=== PATIENT | male | born 1945 | race Caucasian/White ===

== ENCOUNTER → 2023-11-09 13:52 | Outpatient (REF) | payer MEDICARE, OTHER, SELFPAY | LOC: RAD 13:52 | PROVIDERS: ATTENDING PHYSICIAN Surgery; FAMILY PHYSICIAN Internal Medicine | DX: K21.9 Gastro-esophageal reflux disease without esophagitis (principal); M62.08 Separation of muscle (nontraumatic), other site | CPT/HCPCS: 74177; Q9967 ==

== ENCOUNTER → 2024-03-11 06:19 | Day surgery (SDC) | payer MEDICARE, OTHER, SELFPAY | LOC: GI 06:19 | PROVIDERS: ATTENDING PHYSICIAN Specialist | DX: K51.50 Left sided colitis without complications (principal); D12.3 Benign neoplasm of transverse colon; K57.30 Diverticulosis of large intestine without perforation or abscess without bleeding; K22.70 Barrett's esophagus without dysplasia; K29.50 Unspecified chronic gastritis without bleeding; K22.89 Other specified disease of esophagus; K26.9 Duodenal ulcer, unspecified as acute or chronic, without hemorrhage or perforation; R12 Heartburn | CPT/HCPCS: 45380; 43239; 88305; 88342 ==

== ENCOUNTER → 2024-12-02 08:24 | Outpatient (REF) | payer MEDICARE, OTHER, SELFPAY ==
[2024-12-02 09:46] LABS: % Basophils 0.7 % (0-2); % Eosinophils 5.2 % (0-6); % Immature Granulocytes 0.5 % (0-0.5); % Lymphocytes 24.2 % (20.5-51.1); % Monocytes 9.8 % (1.7-9.3); % Neutrophils 59.6 % (42.2-75.2); Absolute Eosinophils 0.3 10^3/uL (0-0.7); Absolute Lymphocytes 1.4 10^3/uL (1.2-3.4); Absolute Monocytes 0.6 10^3/uL (0.1-0.6); Absolute Neutrophils 3.4 10^3/uL (1.4-6.5); Hematocrit 36.3 % (39.0-52.0); Hemoglobin 12.6 g/dL (13.0-18.0); Mean Corp Hgb Conc. 34.7 g/dL (33.0-37.0); Mean Corpuscular Hgb 35.3 pg (27.0-31.0); Mean Corpuscular Volume 101.7 fL (80.0-94.0); Mean Platelet Volume 8.7 fL (7.4-10.4); Nucleated Red Blood Cells % 0 % (-); Platelet Count 271 10^3/uL (130-400); Red Blood Cell Count 3.57 10^6/uL (4.70-6.10); White Blood Cell Count 5.6 10^3/uL (4.8-10.8)
[2024-12-02 10:21] LABS: ALT (SGPT) 30 U/L (0-50); AST (SGOT) 33 U/L (17-59); Albumin 4.6 g/dl (3.5-5.0); Alkaline Phosphatase 107 U/L (38-126); Blood Urea Nitrogen 18 mg/dl (9-20); Carbon Dioxide 19 mmol/L (22-30); Chloride 113 mmol/L (98-107); Glucose 90 mg/dl (70-99); Potassium 4.4 mmol/L (3.5-5.1); Sodium 141 mmol/L (135-145); Total Bilirubin 0.4 mg/dl (0.2-1.3); eGFR > 60.00
[2024-12-02 10:30] LABS: Free T4 0.99 ng/dl (0.78-2.19)
[2024-12-02 10:44] LABS: TSH 4.33 uIU/ml (0.47-4.68)
== END ==
LOC: RCS 08:24
PROVIDERS: ATTENDING PHYSICIAN Hospitalist
DX: R53.83 Other fatigue (principal); E03.9 Hypothyroidism, unspecified
CPT/HCPCS: 36415; 80053; 84439; 84443; 85025; 93306

== ENCOUNTER → 2024-12-04 11:36 | Outpatient (REF) | payer MEDICARE, OTHER, SELFPAY ==
[2024-12-04 12:47] LABS: Iron 121 ug/dl (49-181)
[2024-12-04 12:57] LABS: Percent Saturation 52 % (20-50); Total Iron Binding Capacity 230 ug/dl (261-462)
[2024-12-04 13:35] LABS: Vitamin B12 719 pg/ml (239-931)
[2024-12-04 15:16] LABS: Reticulocyte Count 1.8 % (0.4-2.8)
[2024-12-06 19:00] LABS: Haptoglobin 177 mg/dL (30-200)
== END ==
LOC: REG 11:36
PROVIDERS: ATTENDING PHYSICIAN Hospitalist
DX: D64.9 Anemia, unspecified (principal); D51.0 Vitamin B12 deficiency anemia due to intrinsic factor deficiency
CPT/HCPCS: 36415; 82607; 82728; 83010; 83540; 83550; 85045

== ENCOUNTER 2025-04-06 22:28 | Emergency (ER) | payer MEDICARE, OTHER, SELFPAY ==
[2025-04-06 22:30] VITALS: BP 159/101
[2025-04-07] MEDS: ADACEL 0.5 ML IM (00:07)
--- NOTE | 2025-04-07 00:09 | ED.GENMED ---
History of Present Illness
General
Chief Complaint: Head Injury
Source: patient and family
Exam Limitations: none
Time Seen by Provider: 04/06/25 23:31
History of Present Illness
History of Present Illness:
79yoM with a history of hypertension and DVT on Eliquis presenting with his and daughter for evaluation after a fall this evening. Patient was getting ready for bed and was walking in his bedroom when he had a fall. He is not sure exactly
what happened. believes that he tripped over the carpet. He struck the back of his head but did not lose consciousness. heard a thump and came immediately upstairs and he was already trying to get up and ambulate. He has no complaints
on arrival. He denies any preceding dizziness, chest pain, shortness of breath. states he has a shuffling gait at baseline. Unknown last Tdap.
Past History
Past History
ED Past Medical History: Other (DVT)
ED Past Surgical History: None
Social History
Personal:
Living: with family
Phy Exam
General Physical Exam
General Presentation: well appearing and no apparent distress
General Skin: warm and dry
General Habitus: normal and elderly
General Mental: alert
ENT Exam
ENT Exam: other (Large circular laceration noted to superior scalp with developing hematoma. )
Eye Exam
Eye Exam: PERRL and conjunctiva normal
Pulmonary Exam
Pulmonary Exam: lungs clear, no respiratory distress, no rales, no crackles, no rhonchi and no wheezing
Neurological Exam
Neurological Exam: alert
[place] Com[place] Scale
Eye Opening: Spontaneous
Verbal Response: Oriented
Motor Response: Obeys Commands
GCS Total Score: 15
Skin Exam
Skin Exam: normal color and warm/dry
Psychiatric Exam
Psychiatric Exam: normal mood/affect
Course
Orders/Labs/Results
Orders:
Orders
04/06/25 22:36
CT Cervical Spine W/o Iv Contr Urgent
Comment:
Reason For Exam: fall, head strike
CT Head W/o Iv Contrast Urgent
Comment:
Reason For Exam: fall, head strike
04/06/25 23:44
Tetanus/Diphth/Acelpertussis [Adacel] 0.5 ml IM .ONCE ONE
Vital Signs
Initial and Last Documented VS:
Initial Vital Signs
Temp Pulse Resp BP Pulse Ox
97.7 F 63 16 159/101 94
04/06/25 22:30 04/06/25 22:30 04/06/25 22:30 04/06/25 22:30 04/06/25 22:30
Last Documented Vital Signs
Temp Pulse Resp BP Pulse Ox
97.7 F 63 16 159/101 94
04/06/25 22:30 04/06/25 22:30 04/06/25 22:30 04/06/25 22:30 04/07/25 00:11
Procedures
Laceration Closure
Scalp:
Status of Wound: clean
Size of Wound in cm: 10
Description of Wound Edges: flap-well vascularized
Preparation: cleaned with saline
Anesthesia: 1% Lidocaine with epi
Revision/Debridement: routine- no revision
Wound exploration: explored to base- no FB
Type of Closure: single layer closure
Skin Closure Material: skin montrell
Number of sutures: 11
MDM/Problems Addressed
Differential Diagnosis Includes:
79yoM here after a fall in his bedroom. +head strike. On Eliquis. No reported LOC. He is awake, alert, with a GCS of 15. Large circular scalp laceration noted on exam with hematoma. Differential diagnosis includes but is not limited to:
Laceration, closed head injury, intracranial hemorrhage, fracture
CT head and cervical spine obtained which is negative for traumatic injuries. Wound irrigated and repaired with skin montrell as above. Tdap updated. Home wound care discussed and he was instructed to have montrell removed in 1 week. He was
instructed to follow-up with his PCP and ED return precautions reviewed. Patient discharged stable condition.
*Pulse Oximetry
SaO2: 94
Oxygen Mode of Delivery: Room air
Patient hypoxic: no
*Critical Care Note
Total Time (30-74mins, 75-104mins- exclusive of procedures): Not Applicable
ED Attending Note
-
Portions of this chart may have been created with voice recognition software.� Occasional wrong word or��sound alike� substitutions may have occurred due to the inherent limitations of voice recognition software.
Discharge Plan
Departure
Patient Disposition: Home (Routine Discharge)
Date of Disposition: 04/07/25
Time of Disposition: 00:11
Patient with high blood pressure during this ER visit?: Yes
Discharge Problem:
Laceration of scalp, Ground-level fall
Instructions: Head Injury in Adults (DC), Laceration Repair With Tonica (DC)
Prescriptions:
No Action
sulfasalazine 500 MG tablet
500 mg PO QID
lisinopril 10 MG tablet
20 mg PO DAILY
atorvastatin 20 MG tablet
20 mg PO QPM
diazepam 2 MG tablet
2 mg PO PRN PRN (Reason: anxiety or muscle spasm)
cetirizine 10 MG tablet
10 mg PO DAILY
tamsulosin [Flomax] 0.4 MG capsule
0.4 mg PO HS
apixaban [Eliquis] 2.5 MG tablet
2.5 mg PO BID
hydrocodone-acetaminophen 1 TABLET tablet
1 tab PO Q4HPRN PRN (Reason: pain) Qty: 7 0RF
Referrals:
Lora Delgado MD [Family Provider, Internal Medicine]
Activity Restrictions/Additional Instructions:
Keep wound clean and dry. Montrell will need to be removed in 1 week.
Please follow-up with your family doctor. Return to the ER with any worsening symptoms including confusion or signs of infection around the laceration (redness, warmth, drainage).
Interventions
Interventions:
*Risk Screen - Suicide Last Done: 04/06/25 22:30
*General Assessment Last Done: 04/06/25 22:30
*Neglect/Abuse Screening Last Done: 04/06/25 22:30
*ED- Fall Risk Assessment Last Done: 04/06/25 22:30
*ED COVID-19 Vaccine History Last Done: 04/06/25 22:30
*ED Influenza Vaccine History Last Done: 04/06/25 22:30
*Nursing Disposition Last Done: 04/07/25 00:23
ED- Neurological Assessment Last Done: 04/07/25 00:11
ED-Skin Assessment Last Done: 04/06/25 23:59
Discharge Date and Time
Discharge Date/Time: 04/07/25 00:23
Print Language: YI
== END 2025-04-07 00:23 | disposition home or self-care (01) ==
LOC: EMR 22:28
PROVIDERS: EMERGENCY PHYSICIAN Emergency Medicine; FAMILY PHYSICIAN Internal Medicine
DX: S01.01XA Laceration without foreign body of scalp, initial encounter (principal); I10 Essential (primary) hypertension; Z23 Encounter for immunization; Z79.01 Long term (current) use of anticoagulants; Z86.718 Personal history of other venous thrombosis and embolism; W18.30XA Fall on same level, unspecified, initial encounter; W22.8XXA Striking against or struck by other objects, initial encounter; Y93.01 Activity, walking, marching and hiking; Y92.003 Bedroom of unspecified non-institutional (private) residence as the place of occurrence of the external cause
CPT/HCPCS: 99284; 12004; 90471; 70450; 72125; 90715